=== PATIENT | male | born 1945 ===

== ENCOUNTER → 2018-12-26 22:30 | Outpatient (ROUT) | payer MEDICARE, OTHER, SELFPAY ==
[2018-12-26 23:44] LABS: Hemoglobin A1C% w Est Avg Glu 7.1 % (4.0-6.0)
[2018-12-27 00:19] LABS: Glucose 170 mg/dL (80-110)
== END ==
PROVIDERS: Visit Provider Family Medicine
DX: R73.9 Hyperglycemia, unspecified (principal)
CPT/HCPCS: 36415; 82947; 83036